=== PATIENT | female | born 1945 | race African-American/Black ===

== ENCOUNTER → 2016-10-05 | Outpatient (CLI) | payer MEDICARE, OTHER ==
[2016-09-15 10:57] VITALS: BP 122/84
[~2016-10-05] MED LIST: ANAS1TAB PO; ASPI-482 PO; ATORVASTATIN CA80 MG PO; CHLO500T53 PO; CHOL2000 PO; CRESTOR10 MG PO; DOCU-27 PO; FURO-68 PO; GABA-586 PO; LEVO150T PO; LISI40TA PO; METF10002 PO; METF500T4 PO; METH750T2 PO; METO100T5 PO; MULT-650 PO; NAPR220C4 PO; NIFE90TA9 PO; OXYC1TAB7 PO; PREG75CA PO
--- NOTE | 2016-10-05 14:34 | RAD ---
Indication lumbar stenosis. Back surgery in August. Follow-up. AP and lateral views of the lumbar spine were obtained as well as a coned view targeted to the lumbosacral junction. Spinal fixation cage is noted extending from L3 through L5. There is minimal spondylolisthesis at L3-4 and L4-5. There is disc space narrowing at L4-5 and L5-S1. Acute bony finding is not seen. Surgical complication is not seen. IMPRESSION: Postop spinal fusion. No complication seen
== END | disposition home or self-care (01) ==
LOC: RAD 13:27
PROVIDERS: ATTEND Neurological Surgery
DX: M48.06 Spinal stenosis, lumbar region (principal); M43.16 Spondylolisthesis, lumbar region; M48.07 Spinal stenosis, lumbosacral region; Z98.1 Arthrodesis status
CPT/HCPCS: 72100

== ENCOUNTER → 2016-12-27 | Outpatient (CLI) | payer MEDICARE, OTHER ==
[2016-09-15 10:57] VITALS: BP 122/84
[~2016-12-27] MED LIST changes: +GADOBUTROL 7.5 MMOL/7.5 ML VIAL IV ONE; +OXYC-323 PO
--- NOTE | 2016-12-27 13:04 | KCIC ---
PROCEDURE MRI lumbar spine with and without contrast. HISTORY Low back pain with right leg pain and numbness. Surgery in August. TECHNIQUE Sagittal T1, sagittal T2, sagittal STIR, axial T1, and axial T2 sequences are provided. 11 milliliters of intravenous Gadavist was administered and post-contrast axial and sagittal imaging was performed. COMPARISON Preoperative study from July 07, 2016. FINDINGS Since the prior study, there has been pedicle screw and alan instrumentation from L3 through L5 with decompression. Hardware results in artifact at these levels. Postoperative fluid collection within the dorsal soft tissues has thin linear peripheral enhancement, there appear to be 2 separate collections, one measuring 3.3 x 3.0 by 2.7 centimeters and a second smaller collection deeper to the initial collection. Second collection is at the level of L3-L4 within the posterior soft tissues measuring up to 1 centimeter. Slight anterolisthesis at L3-L4 and L4-L5 again is noted. There is no change in alignment. There is no worrisome marrow lesion. There is diffuse disc desiccation. There is narrowing of disc height from L3-L4 through L5-S1 and there probably are vacuum discs at these levels. The numbering system assumes 5 lumbar type vertebral bodies. Findings by individual level are as follows: L1-L2: There is no canal or foraminal compromise. L2-L3: Mild disc bulge and mild to moderate facet and ligamentum flavum hypertrophy are noted. Midline AP diameter of the thecal sac is mildly narrowed to 9 millimeters, compared to 14 millimeters one level above. Foraminal narrowing is mild. L3-L4: Disc osteophyte complex is noted along with facet and ligamentum flavum hypertrophy. Midline AP diameter of the thecal sac is narrowed to 6 millimeters. There is lateral recess narrowing bilaterally. Foraminal narrowing which is [id number] is suspected bilaterally, evaluation limited by hardware artifact. Canal stenosis is mildly improved. L4-L5: Disc osteophyte complex and facet hypertrophy are noted. Midline AP diameter of the thecal sac measures 9 millimeters, improved when compared to prior study. There is still moderate lateral recess narrowing bilaterally. Foraminal narrowing is probably [id number], evaluation limited by hardware artifact. Foraminal narrowing appears similar to prior. L5-S1: Disc osteophyte complex and facet hypertrophy are noted, thecal sac diminutive at this level but still likely mild canal stenosis. There is lateral recess narrowing bilaterally, greater on the left. Foraminal narrowing appears high-grade on the left and probably mild on the right. Findings at this level are similar to prior. IMPRESSION - Decompression performed with pedicle screw and alan instrumentation from L3 through L5. Canal stenosis appears improved both at L3-L4 and at L4-L5. Canal stenosis may be slightly increased at L2-L3. Foraminal narrowing is probably unchanged from prior study, allowing for hardware artifact. - Postoperative fluid collections may represent seroma or hematoma, no obvious imaging findings to suggest abscess. Electronically signed by: Devendra Dominguez MD (Dec 27, 2016 13:02:28)
== END | disposition home or self-care (01) ==
LOC: KCIC MRI 11:13
PROVIDERS: ATTEND Neurological Surgery
DX: M54.41 Lumbago with sciatica, right side (principal)
CPT/HCPCS: 72158; 82565; A9585

== ENCOUNTER → 2017-01-15 | Outpatient (CLI) | payer MEDICARE, OTHER ==
[2016-09-15 10:57] VITALS: BP 122/84
[~2017-01-15] MED LIST changes: -GADOBUTROL 7.5 MMOL/7.5 ML VIAL IV ONE; +IOHEXOL 180 MG/ML 10 ML VIAL. IT ONE; +LIDOCAINE 1% Multi-Dose 20 ML VIAL. ID ONE
--- NOTE | 2017-01-15 17:03 | KCIC ---
PROCEDURE CT lumbar spine with contrast. HISTORY Persistent back pain. Surgery in August. TECHNIQUE Axial images and coronal and sagittal re-formatted images are provided. Oblique axial images through selected interspaces were performed. Exam was performed post myelogram, myelogram will be reported separately. Patient was scanned supine. One or more of the following individualized dose reduction techniques were utilized for this exam: 1. Automated exposure control. 2. Adjustment of the mA and/or kV according to patient's size. 3. Use of iterative reconstruction technique. COMPARISON MRI from December 27, 2016. FINDINGS There is artifact from pedicle screw and alan instrumentation which extends from L3 through L5. There is no perihardware lucency. Screws appear in position. There is anterolisthesis at L3-L4 and L4-L5, similar to prior. There are vacuum discs from L3-L4 through L5-S1. There is decompression at L3-L4 and L4-L5. The conus medullaris terminates at L2. Degenerative findings by individual level are as follows: L1-L2: There is no canal or foraminal compromise. L2-L3: Disc bulge and facet and ligamentum flavum hypertrophy are noted. Midline AP diameter of the thecal sac is narrowed to 8-9 millimeters. There is mild to moderate bilateral foraminal narrowing. L3-L4: There has been decompression. There is facet hypertrophy. Midline AP diameter of the thecal sac is 8 millimeters, decreased. Postoperative fluid collections noted dorsal to the thecal sac on prior MRI are not as well evaluated by CT. Transverse dimension of the thecal sac is narrowed down to 7 millimeters. In addition, with the anterolisthesis there is lateral recess narrowing. Anterolisthesis and facet hypertrophy also result in mild foraminal narrowing. L4-L5: In addition to the anterolisthesis, there is a disc bulge and there is facet hypertrophy. Midline AP diameter of the thecal sac just below the level of the interspace at the level of the superior endplate of L5 is narrowed to 6-7 millimeters. There is lateral recess narrowing. Foraminal narrowing is mild to moderate. L5-S1: There is a diffuse disc bulge. There is facet hypertrophy. There is mild to moderate bilateral foraminal narrowing. There is lateral recess narrowing, both S1 nerve roots in contact with the disc. There is atheromatous disease in the abdominal aorta without aneurysm. IMPRESSION 1. Postsurgical changes re-demonstrated from L3 through L5, no evidence of perihardware lucency to suggest loosening or infection. 2. Degenerative disc disease and facet hypertrophy noted throughout the lumbar spine. Several levels of foraminal narrowing and canal stenosis, as described above. Findings are similar to the previous MRI. Electronically signed by: Devendra Dominguez MD (Jan 15, 2017 17:01:42)
--- NOTE | 2017-01-15 17:07 | KCIC ---
PROCEDURE Lumbar myelogram. HISTORY Degenerative disc disease. Previous fusions. TECHNIQUE The procedure, its risks and benefits, and potential complications were discussed with the patient. All questions were answered. Written consent to proceed was obtained. Timeout procedure was performed. The patient was prepped and draped in the usual manner. 1 percent lidocaine was administered locally. Using intermittent fluoroscopic guidance, a 22 gauge 5 inch spinal needle was positioned intrathecally at the level ofL3 via a paraspinous approach. A small amount of clear CSF was aspirated. Fifteen milliliters of [id number] was injected intrathecally under intermittent fluoroscopic visualization. An image documenting needle position was stored. The needle was withdrawn. There were no immediate complications. Fluoroscopy time [id number]. Image count is 10. COMPARISON MRI December 27, 2016. FINDINGS Decompression is noted at L3-L4 with pedicle screw and alan instrumentation. There is circumferential indentation of the contrast column at L3-L4. L4-L5 evaluation is limited given minimal contrast at this level, is better evaluated on the subsequent CT. There is no dynamic instability with flexion or extension. IMPRESSION Lumbar myelogram without complication. Electronically signed by: Devendra Dominguez MD (Jan 15, 2017 17:05:31)
== END | disposition home or self-care (01) ==
LOC: KCIC 11:53
PROVIDERS: ATTEND Neurological Surgery
DX: M51.36 Other intervertebral disc degeneration, lumbar region (principal)
CPT/HCPCS: 72132; 72265

== ENCOUNTER 2018-02-05 06:38 | Outpatient (CLI) | payer MEDICARE, OTHER ==
[2018-02-05] MEDS ORDERED: LIDOCAINE 2% 20 ML VIAL. (07:09)
[2018-02-05] MEDS ORDERED: IODIXANOL 320 MG/ML 100 ML VIAL. (07:09)
[2018-02-05 07:39] LABS: HEMATOCRIT 36.3 % (36.0-47.0); HEMOGLOBIN 12.5 g/dL (12.0-15.5); MEAN CORPUSCULAR HEMOGLOBIN 31 pg (25-35); MEAN CORPUSCULAR HGB CONC 34 g/dL (31-37); MEAN CORPUSCULAR VOLUME 90 fL (79-100); PLATELET COUNT 237 x10^3/uL (140-400); RED BLOOD COUNT 4.04 x10^6/uL (3.50-5.40); RED CELL DISTRIBUTION WIDTH 14.2 % (11.5-14.5); WHITE BLOOD COUNT 4.9 x10^3/uL (4.0-11.0)
[2018-02-05 07:45] LABS: ANION GAP 6 (6-14); BLOOD UREA NITROGEN 18 mg/dL (7-20); CALCIUM 8.5 mg/dL (8.5-10.1); CARBON DIOXIDE 32 mmol/L (21-32); CHLORIDE 101 mmol/L (98-107); CREATININE 0.8 mg/dL (0.6-1.0); GFR 85.3; GLUCOSE 112 mg/dL (70-99); POTASSIUM 3.8 mmol/L (3.5-5.1); SODIUM 139 mmol/L (136-145)
[2018-02-05 07:54] LABS: PARTIAL THROMBOPLASTIN TIME 24 SEC (24-38); PROTHROMBIN TIME PATIENT 12.8 SEC (11.7-14.0)
[2018-02-05] MEDS ORDERED: MIDAZOLAM HCL/PF 2 MG/2 ML VIAL. (08:14)
[2018-02-05] MEDS ORDERED: fentaNYL PF VIAL 100 MCG/2 ML VIAL (08:14)
[2018-02-05] MEDS: LIDOCAINE 2% 20 ML VIAL. IJ (08:58)
[2018-02-05] MEDS: IODIXANOL 320 MG/ML 100 ML VIAL. IART (08:58)
[2018-02-05] MEDS: fentaNYL PF VIAL 100 MCG/2 ML VIAL IV (08:59)
[2018-02-05] MEDS: MIDAZOLAM HCL/PF 2 MG/2 ML VIAL. IV (08:59)
== END 2018-02-05 11:40 | disposition home or self-care (01) ==
LOC: CCL 06:38
DX: R94.39 Abnormal result of other cardiovascular function study (principal); I10 Essential (primary) hypertension; E11.9 Type 2 diabetes mellitus without complications; E78.00 Pure hypercholesterolemia, unspecified; E89.0 Postprocedural hypothyroidism; Z85.3 Personal history of malignant neoplasm of breast; Z90.710 Acquired absence of both cervix and uterus; Z90.11 Acquired absence of right breast and nipple; Z98.1 Arthrodesis status; Z88.0 Allergy status to penicillin; Z91.013 Allergy to seafood; Z98.890 Other specified postprocedural states; Z81.8 Family history of other mental and behavioral disorders; Z82.49 Family history of ischemic heart disease and other diseases of the circulatory system; G89.29 Other chronic pain; Z79.84 Long term (current) use of oral hypoglycemic drugs; Z79.899 Other long term (current) drug therapy; Z87.440 Personal history of urinary (tract) infections; D64.9 Anemia, unspecified; Z79.01 Long term (current) use of anticoagulants
CPT/HCPCS: 36415; 80048; 85027; 85610; 85730; 93458; 99152; 99153; C1769; C1771; C1892; G0269; J1644; J2250; J3010

== ENCOUNTER → 2019-12-24 | Outpatient (CLI) | payer MEDICARE, OTHER ==
[2018-02-05 11:00] VITALS: BP 114/64
[~2019-12-24] MED LIST changes: +DOCU-109 PO; -DOCU-27 PO; -GABA-586 PO; +GABA300C18 PO; -IOHEXOL 180 MG/ML 10 ML VIAL. IT ONE; -LIDOCAINE 1% Multi-Dose 20 ML VIAL. ID ONE; +LISI-130 PO; -LISI40TA PO; -METF10002 PO; +METF10007 PO; +METF500T16 PO; -METF500T4 PO; +NIFE90TA49 PO; -NIFE90TA9 PO; -OXYC-323 PO; +OXYC1TAB15 PO
[2019-12-24] MEDS: IOHEXOL 300 MG/ML 100ML VIAL. IV ONE (10:14)
--- NOTE | 2019-12-24 11:10 | KCIC ---
CT scan of the abdomen and pelvis with contrast 12/24/2019 CLINICAL HISTORY: Lower extremity edema, left greater than right. TECHNIQUE: After the intravenous administration of 100 cc of Omnipaque 300, contiguous, 3 mm axial sections were obtained through the abdomen and pelvis. One or more of the following individualized dose reduction techniques were utilized for this study: 1. Automated exposure control. 2. Adjustment of the mA and/or kV according to patient size. 3. Use of iterative reconstruction technique. FINDINGS: Images through the lung bases demonstrate minimal dependent subsegmental atelectasis bilaterally. The liver, spleen, pancreas, adrenal glands and kidneys are within normal limits. Atherosclerotic calcification of the abdominal aorta and its branches is noted. The abdominal aorta is mildly tortuous but tapers normally. The gallbladder is well-distended. No free fluid or free air is within abdomen. Air and stool are seen throughout the colon. The appendix is well-visualized and is within normal limits. No retroperitoneal lymphadenopathy is seen. No extrinsic compression upon the inferior vena cava is noted. No extrinsic compression upon the common iliac veins is seen. Images through the pelvis demonstrate the urinary bladder to be contracted. Calcifications are seen within the pelvis consistent with phleboliths. The patient appears to be post hysterectomy. No adnexal mass is seen. No free fluid is noted. Pelvic or inguinal lymphadenopathy is seen. Very mild S-shaped curvature of the thoracolumbar spine is seen. Degenerative changes are seen involving the lower thoracic and throughout the lumbar spine along with both hips. Patient is post posterolateral fusion using pedicle screws and stabilizing rods extending from L3 to L5. The patient is post laminectomy at L4. IMPRESSION: No acute abnormality is seen. Electronically signed by: Erick Martinez MD (12/24/2019 11:07 AM) [id number]
== END | disposition home or self-care (01) ==
LOC: KCIC CT 09:20
PROVIDERS: ATTEND Internal Medicine Cardiovascular Disease
DX: I70.0 Atherosclerosis of aorta (principal); J98.11 Atelectasis
CPT/HCPCS: 74177; Q9967

== ENCOUNTER 2022-02-21 09:59 | Outpatient (CLI) | payer MEDICARE, OTHER ==
[~2022-02-21] VITALS: Ht 167.6 cm; Wt 117.3 kg
[~2022-02-21 09:59] MED LIST changes: +METH-562 PO; -METH750T2 PO; +PREG-9 PO; -PREG75CA PO
[2022-02-21 10:56] LABS: CALCIUM 8.7 mg/dL (8.5-10.1); CREATININE 1.1 mg/dL (0.6-1.0); GFR 58.4; POTASSIUM 4.4 mmol/L (3.5-5.1)
[2022-02-21 11:00] VITALS: BP 142/83
[2022-02-21 11:14] LABS: HEMATOCRIT 35.4 % (36.0-47.0); HEMOGLOBIN 11.9 g/dL (12.0-15.5); RED BLOOD COUNT 3.87 x10^6/uL (3.50-5.40); WHITE BLOOD COUNT 5.1 x10^3/uL (4.0-11.0)
[2022-02-21] MEDS ORDERED: GABA300C18 PO (11:25)
[2022-02-21] MEDS ORDERED: CELE200C PO (11:25)
[2022-02-21] MEDS ORDERED: CALC1CAP8 PO (11:25)
[2022-02-21] MEDS ORDERED: POTA-121 PO (11:25)
[2022-02-21] MEDS ORDERED: ACET500T33 PO (11:25)
[2022-02-21] MEDS ORDERED: MIDAZOLAM HCL/PF 2 MG/2 ML VIAL. ONE (12:47)
[2022-02-21] MEDS ORDERED: fentaNYL PF VIAL 100 MCG/2 ML VIAL ONE (12:47)
[2022-02-21] MEDS ORDERED: LIDOCAINE 1% PF 2 ML VIAL. ONE (12:49)
[2022-02-21] MEDS ORDERED: LIDOCAINE 1% Multi-Dose 20 ML VIAL. ONE (13:02)
[2022-02-21] MEDS ORDERED: MIDAZOLAM HCL/PF 2 MG/2 ML VIAL. IV ONE (13:30)
[2022-02-21] MEDS ORDERED: IOHEXOL 300 MG/ML 50 ML VIAL. IART ONE (13:30)
[2022-02-21] MEDS ORDERED: LIDOCAINE 1% Multi-Dose 20 ML VIAL. INJ ONE (13:30)
[2022-02-21] MEDS ORDERED: fentaNYL PF VIAL 100 MCG/2 ML VIAL IV ONE (13:30)
[2022-02-21 13:38] VITALS: BP 149/80
[2022-02-21 13:50] VITALS: BP 144/79
[2022-02-21 14:05] VITALS: BP 146/79
[2022-02-21 14:20] VITALS: BP 146/79
[2022-02-21 14:35] VITALS: BP 151/69
--- NOTE | 2022-02-21 14:41 | NUR ---
Discharge Note: LUPE ROQUE Discharge instructions and discharge home medications reviewed with Patient and a copy given. All questions have been answered and understanding verbalized. The following instructions and handouts were given: adult moderate sedation and incision site care Discontinued lines and drains: Peripheral IV intact. Patient discharged to Home or Self Care withFamily Membervia Wheelchair
--- NOTE | 2022-02-21 15:22 | CARD ---
MR#: [id number] Date of Study: 02/21/2022 Ordering Physician: BISI WILSON, Referring Physician: BISI WILSON, Tech: RT Mauro(R) APPROVED REPORT Technologist: RT Mauro(R) Nurse: Clement Heck RN Procedure(s) performed: Fluoro time: 0.8 min dose: 1.8gycm2 moderate sedation:25 min RHC INDICATION The indication(s) include : peripheral edema, dyspnea. PROCEDURE NARRATIVE Clinical information: 76-year-old woman with bilateral lower extremity lymphedema who presents to the office for evaluation of dyspnea and worsening bilateral lower extremity edema. Procedure details: Under 1% lidocaine local anesthesia a 8 Gambian sheath was placed in the right internal jugular vein v ia ultrasound guidance. Next, a 7 Gambian PA catheter was advanced the right heart chambers and press ures and saturations were obtained. At case completion all catheters and sheaths were removed and he mostasis was achieved via manual compression. No acute complications. Findings: RA 5 mmHg RV 30/2/7 PA 29/4/12 Wedge 7 mmHg PA saturation 77% FA saturation 100% Michael cardiac output 5.8 L/min Michael cardiac index 2.6 Conclusion 1. Normal biventricular filling pressures 2. No significant pulmonary hypertension 3. Normal cardiac output. Recommendations Referral to lymphedema clinic and weight loss program Signed by : Bisi Wilson, Electronically Approved : 02/21/2022 15:22:04
== END 2022-02-21 14:43 | disposition home or self-care (01) ==
LOC: CCL 09:59
PROVIDERS: ATTEND Internal Medicine Cardiovascular Disease
DX: R06.09 Other forms of dyspnea (principal); R60.0 Localized edema; I10 Essential (primary) hypertension; E78.00 Pure hypercholesterolemia, unspecified; M19.90 Unspecified osteoarthritis, unspecified site; E11.9 Type 2 diabetes mellitus without complications; E03.9 Hypothyroidism, unspecified; Z87.440 Personal history of urinary (tract) infections; Z79.899 Other long term (current) drug therapy; Z98.890 Other specified postprocedural states; Z85.3 Personal history of malignant neoplasm of breast; Z90.710 Acquired absence of both cervix and uterus; Z79.82 Long term (current) use of aspirin; Z79.84 Long term (current) use of oral hypoglycemic drugs; Z88.0 Allergy status to penicillin; Z91.013 Allergy to seafood; Z88.8 Allergy status to other drugs, medicaments and biological substances
CPT/HCPCS: 36415; 76937; 80048; 85027; 85610; 93451; 99152; 99153; C1773; C1894; J2250; J3010; J3490